=== PATIENT | male | born 1960 | race Hispanic/Latino ===

== ENCOUNTER 2020-08-19 12:04 | Inpatient (IN) | payer MEDICAID, OTHER ==
[~2020-08-19] VITALS: Ht 180.3 cm; Wt 88.6 kg
[2020-08-19] MEDS ORDERED: ZOSYN 3.375GM+NS 50ML 50 ML IV ONE (13:10)
[2020-08-19 13:19] LABS: INR 0.97 (0.85-1.15); PROTHROMBIN TIME 10.1 SEC (9.6-11.6)
[2020-08-19 13:20] LABS: PARTIAL THROMBOPLASTIN TIME 24.1 SEC (26.3-35.5)
[2020-08-19 13:23] LABS: ALBUMIN 3.4 g/dL (3.5-5.0); BILIRUBIN,TOTAL 0.3 mg/dL (0.2-1.0); CREATININE 1.7 mg/dL (0.5-1.5); POTASSIUM 4.8 mmol/L (3.5-5.1); TOTAL PROTEIN, SERUM 7.4 g/dL (6.0-8.3)
[2020-08-19] MEDS ORDERED: INSULIN HUMULIN R 100 UNIT/ML 3ML ONE ×2 (13:47→18:19)
[2020-08-19 13:51] LABS: BASOPHILS % (AUTO) 0.5 % (0.0-5.0); EOSINOPHILS % (AUTO) 1.8 % (0.0-8.0); LYMPHOCYTES % (AUTO) 15.1 % (21.0-51.0); MEAN CORPUSCULAR HEMOGLOBIN 27.9 pg (27.0-33.0); MEAN CORPUSCULAR HGB CONC 32.9 g/dL (32.0-36.0); MEAN CORPUSCULAR VOLUME 84.8 fL (79-99); MONOCYTES % (AUTO) 6.5 % (3.0-13.0); NEUTROPHILS % (AUTO) 75.8 % (40.0-77.0); PLATELET COUNT (AUTO) 296 K/uL (130-400); RED BLOOD CELL COUNT(AUTO) 4.48 MIL/uL (4.50-6.20); RED CELL DISTRIBUTION WIDTH 12.9 % (11.0-15.5); WHITE BLOOD COUNT (AUTO) 9.5 K/uL (4.8-10.8)
[2020-08-19] MEDS ORDERED: VANCOMYCIN PROTOCOL PER PHARMACY IV SCH (14:00)
[2020-08-19] MEDS: CEFAZOLIN SODIUM 1 GM VIAL IVP SCH ×2 (14:00→22:00)
[2020-08-19] MEDS ORDERED: LACTULOSE 20 GM/30 ML UDCUP PO PRN (14:00)
[2020-08-19] MEDS ORDERED: ONDANSETRON 4MG INJ IV PRN (14:00)
[2020-08-19] MEDS: 0.9%NACL 1000ML 1,000 ML IV SCH ×3 (14:00→23:41)
[2020-08-19] MEDS ORDERED: GABAPENTIN 300 MG CAPSULE ONE (14:14)
[2020-08-19] MEDS ORDERED: ACETAMINOPHEN 500 MG TABLET ONE (14:14)
[2020-08-19] MEDS ORDERED: 0.9%NACL 1000ML 1,000 ML IV ONE ×2 (14:14→15:34)
[2020-08-19 14:38] LABS: ABG BASE EXCESS -2.4 mmol/L (-2.0-3.0); ABG OXYGEN SATURATION 98.2 % (95.0-99.0); ABG PCO2 33 mmHg (35-48)
[2020-08-19 14:46] LABS: HEMOGLOBIN A1C 13.4 % (4.0-6.0)
[2020-08-19] MEDS ORDERED: COMPOUND IV REFRIGERATED 1 EACH IVSOLN MISC PRN (15:00)
[2020-08-19] MEDS ORDERED: CEFAZOLIN SODIUM 1 GM VIAL ONE (15:18)
[2020-08-19] MEDS ORDERED: INSULIN HUMULIN R 100 UNIT/ML 3ML SQ SCH (16:30)
[2020-08-19] MEDS: VANCOMYCIN 1G 1.25 GM in 0.9% NACL 250ML 250 ML IV SCH (17:00)
[2020-08-19] MEDS: INSULIN HUMULIN R 100 UNIT/ML 3ML SQ SCH ×2 (18:00→23:44)
[2020-08-19] MEDS ORDERED: DiphenhydrAMINE HCL 50 MG/ML VIAL IVP PRN (18:30)
[2020-08-19 19:01] LABS: HEMATOCRIT 33.9 % (42-54); MEAN CORPUSCULAR HEMOGLOBIN 28.8 pg (27.0-33.0); MEAN CORPUSCULAR HGB CONC 33.6 g/dL (32.0-36.0); MEAN CORPUSCULAR VOLUME 85.6 fL (79-99); RED BLOOD CELL COUNT(AUTO) 3.96 MIL/uL (4.50-6.20); WHITE BLOOD COUNT (AUTO) 7.5 K/uL (4.8-10.8)
[2020-08-19 19:11] LABS: CREATININE 1.3 mg/dL (0.5-1.5); POTASSIUM 4.1 mmol/L (3.5-5.1)
[2020-08-19 19:31] LABS: INR 0.93 (0.85-1.15); PROTHROMBIN TIME 10.2 SEC (9.6-11.6)
[2020-08-19 19:32] LABS: PARTIAL THROMBOPLASTIN TIME 26.9 SEC (26.3-35.5)
[2020-08-19 20:59] VITALS: BP 139/91
[2020-08-19] MEDS: FAMOTIDINE 20MG VIAL IV SCH (21:00)
[2020-08-19 23:48] VITALS: BP 152/68
[2020-08-20] VITALS (12 sets, daily range): BP systolic 117–175; BP diastolic 68–83
[2020-08-20] MEDS: 0.9%NACL 1000ML 1,000 ML IV SCH ×4 (04:30→21:50)
[2020-08-20 05:15] LABS: BASOPHILS % (AUTO) 0.9 % (0.0-5.0); EOSINOPHILS % (AUTO) 3.8 % (0.0-8.0); HEMATOCRIT 33.9 % (42-54); LYMPHOCYTES % (AUTO) 30.1 % (21.0-51.0); MEAN CORPUSCULAR HEMOGLOBIN 27.4 pg (27.0-33.0); MEAN CORPUSCULAR HGB CONC 31.9 g/dL (32.0-36.0); MONOCYTES % (AUTO) 11.1 % (3.0-13.0); NEUTROPHILS % (AUTO) 53.8 % (40.0-77.0); PLATELET COUNT (AUTO) 263 K/uL (130-400); RED BLOOD CELL COUNT(AUTO) 3.94 MIL/uL (4.50-6.20); WHITE BLOOD COUNT (AUTO) 6.8 K/uL (4.8-10.8)
[2020-08-20 05:29] LABS: ALBUMIN 2.6 g/dL (3.5-5.0); BILIRUBIN,TOTAL 0.3 mg/dL (0.2-1.0); CREATININE 1.2 mg/dL (0.5-1.5); POTASSIUM 3.8 mmol/L (3.5-5.1); TOTAL PROTEIN, SERUM 5.8 g/dL (6.0-8.3)
[2020-08-20] MEDS: INSULIN HUMULIN R 100 UNIT/ML 3ML SQ SCH ×7 (06:00→22:08)
[2020-08-20] MEDS: CEFAZOLIN SODIUM 1 GM VIAL IVP SCH (06:04)
[2020-08-20] MEDS ORDERED: ENOXAPARIN SODIUM 40 MG/0.4 ML SYRINGE SQ SCH (09:00)
[2020-08-20] MEDS ORDERED: HEPARIN 10,000 UNIT/10ML (1,000 UNIT/ML) VIAL ONE (11:38)
[2020-08-20] MEDS ORDERED: IODIXANOL 320 MG/ML 100 ML VIAL ONE (11:38)
[2020-08-20] MEDS ORDERED: NITROGLYCERIN 2 MG VIAL IV ONE (11:38)
[2020-08-20] MEDS ORDERED: HEPARIN 1,000 UNIT VIAL ONE (11:38)
[2020-08-20] MEDS ORDERED: MIDAZOLAM HCL 1 MG/ML 2ML VIAL ONE (11:38)
[2020-08-20] MEDS ORDERED: FENTANYL CITRATE PF 50 MCG/1 ML 2ML VIAL ONE (11:38)
[2020-08-20] MEDS ORDERED: LIDOCAINE HCL 400MG/20ML VIAL ONE (11:39)
[2020-08-20] MEDS: NICOTINE 7 MG/ 24 HR PATCH TD SCH (11:53)
[2020-08-20] MEDS: ASPIRIN 81MG CHEW TAB PO SCH (11:54)
[2020-08-20] MEDS: FAMOTIDINE 20MG VIAL IV SCH ×2 (11:54→21:49)
[2020-08-20] MEDS ORDERED: METOPROLOL TARTRATE 1 MG/ML 5ML VIAL IV ONE (13:33)
[2020-08-20] MEDS ORDERED: ASPIRIN 325MG EC TAB PO ONE (13:40)
[2020-08-20] MEDS ORDERED: TICAGRELOR 90 MG TABLET ONE (13:40)
[2020-08-20] MEDS ORDERED: 0.9%NACL 1000ML 1,000 ML IV SCH (14:00)
[2020-08-20] MEDS: CEFEPIME HCL 1 GM VIAL IVP SCH ×2 (14:00→21:49)
[2020-08-20] MEDS: VANCOMYCIN 1G 1.25 GM in 0.9% NACL 250ML 250 ML IV SCH ×2 (14:36→21:49)
[2020-08-20] MEDS ORDERED: DIPH,PERTUSS(ACELL),TET VAC/PF 0.5 ML VIAL IM ONE (17:00)
[2020-08-20] MEDS ORDERED: INSULIN GLARGINE 100 UNITS/ML 10 ML VIAL SQ SCH (21:00)
[2020-08-20] MEDS: ATORVASTATIN 40 MG TABLET PO SCH (21:49)
[2020-08-20] MEDS: ACETAMINOPHEN 325 MG TAB PO PRN (22:02)
[2020-08-20] MEDS ORDERED: TICAGRELOR 90 MG TABLET PO SCH (23:00)
[2020-08-21] VITALS (7 sets, daily range): BP systolic 117–178; BP diastolic 66–84
[2020-08-21] MEDS: 0.9%NACL 1000ML 1,000 ML IV SCH ×3 (00:11→05:35)
[2020-08-21] MEDS: ACETAMINOPHEN 325 MG TAB PO PRN (03:57)
[2020-08-21 05:07] LABS: BASOPHILS % (AUTO) 0.4 % (0.0-5.0); EOSINOPHILS % (AUTO) 2.7 % (0.0-8.0); HEMATOCRIT 37.2 % (42-54); LYMPHOCYTES % (AUTO) 18.2 % (21.0-51.0); MEAN CORPUSCULAR HEMOGLOBIN 28.7 pg (27.0-33.0); MEAN CORPUSCULAR HGB CONC 33.3 g/dL (32.0-36.0); MEAN CORPUSCULAR VOLUME 86.1 fL (79-99); MONOCYTES % (AUTO) 4.8 % (3.0-13.0); NEUTROPHILS % (AUTO) 73.5 % (40.0-77.0); PLATELET COUNT (AUTO) 288 K/uL (130-400); RED BLOOD CELL COUNT(AUTO) 4.32 MIL/uL (4.50-6.20); RED CELL DISTRIBUTION WIDTH 12.9 % (11.0-15.5)
[2020-08-21 05:29] LABS: ALBUMIN 3.1 g/dL (3.5-5.0); BILIRUBIN,TOTAL 0.5 mg/dL (0.2-1.0); CREATININE 1.6 mg/dL (0.5-1.5); POTASSIUM 4.1 mmol/L (3.5-5.1); TOTAL PROTEIN, SERUM 6.8 g/dL (6.0-8.3)
[2020-08-21] MEDS: CEFEPIME HCL 1 GM VIAL IVP SCH ×3 (06:01→21:31)
[2020-08-21] MEDS: INSULIN HUMULIN R 100 UNIT/ML 3ML SQ SCH ×5 (06:02→22:06)
[2020-08-21] MEDS ORDERED: METO-408 PO (07:24)
[2020-08-21] MEDS ORDERED: SITA1TAB6 PO (07:24)
[2020-08-21] MEDS ORDERED: CITA-106 PO (07:24)
[2020-08-21] MEDS ORDERED: BUSP15 PO (07:24)
[2020-08-21] MEDS ORDERED: OMEP20CA12 PO (07:24)
[2020-08-21] MEDS ORDERED: GLIP10TA9 PO (07:24)
[2020-08-21] MEDS ORDERED: AMLO-258 PO (07:24)
[2020-08-21] MEDS ORDERED: ATOR40TA71 PO (07:24)
[2020-08-21] MEDS ORDERED: INSULIN HUMULIN R 100 UNIT/ML 3ML SQ SCH (07:30)
[2020-08-21] MEDS ORDERED: PREG50 PO (08:37)
[2020-08-21] MEDS: FAMOTIDINE 20MG VIAL IV SCH ×2 (08:52→21:31)
[2020-08-21] MEDS: CITALOPRAM 20 MG TABLET PO SCH (08:52)
[2020-08-21] MEDS: ASPIRIN 81MG CHEW TAB PO SCH (08:52)
[2020-08-21] MEDS: CLOPIDOGREL 75MG TAB PO SCH (08:53)
[2020-08-21] MEDS: NICOTINE 7 MG/ 24 HR PATCH TD SCH (08:54)
[2020-08-21] MEDS: DIPH,PERTUSS(ACELL),TET VAC/PF 0.5 ML VIAL IM SCH (09:02)
[2020-08-21] MEDS ORDERED: AMLODIPINE 5 MG TAB PO SCH (09:44)
[2020-08-21] MEDS: BUSPIRONE HCL 5 MG TABLET PO SCH ×2 (11:02→21:30)
[2020-08-21] MEDS: VANCOMYCIN 1G 1.25 GM in 0.9% NACL 250ML 250 ML IV SCH ×2 (11:03→21:29)
[2020-08-21] MEDS: METOPROLOL SUCCINATE 50 MG TAB.SR.24H PO SCH ×2 (11:03→21:29)
[2020-08-21] MEDS ORDERED: ATORVASTATIN 40 MG TABLET PO SCH (21:00)
[2020-08-21] MEDS: ATORVASTATIN 40 MG TABLET PO SCH (21:29)
[2020-08-21] MEDS: INSULIN GLARGINE 100 UNITS/ML 10 ML VIAL SQ SCH (21:33)
[2020-08-22] VITALS (18 sets, daily range): BP systolic 108–172; BP diastolic 63–86
[2020-08-22 04:59] LABS: BASOPHILS % (AUTO) 0.4 % (0.0-5.0); EOSINOPHILS % (AUTO) 4.5 % (0.0-8.0); HEMATOCRIT 35.2 % (42-54); LYMPHOCYTES % (AUTO) 22.7 % (21.0-51.0); MEAN CORPUSCULAR HEMOGLOBIN 27.5 pg (27.0-33.0); MEAN CORPUSCULAR HGB CONC 31.8 g/dL (32.0-36.0); MEAN CORPUSCULAR VOLUME 86.3 fL (79-99); MONOCYTES % (AUTO) 8.4 % (3.0-13.0); NEUTROPHILS % (AUTO) 63.6 % (40.0-77.0); PLATELET COUNT (AUTO) 275 K/uL (130-400); RED BLOOD CELL COUNT(AUTO) 4.08 MIL/uL (4.50-6.20); WHITE BLOOD COUNT (AUTO) 7.3 K/uL (4.8-10.8)
[2020-08-22] MEDS: CEFEPIME HCL 1 GM VIAL IVP SCH ×3 (05:14→22:06)
[2020-08-22] MEDS: INSULIN HUMULIN R 100 UNIT/ML 3ML SQ SCH ×7 (05:16→21:43)
[2020-08-22 05:31] LABS: ALBUMIN 2.6 g/dL (3.5-5.0); BILIRUBIN,TOTAL 0.4 mg/dL (0.2-1.0); CREATININE 1.3 mg/dL (0.5-1.5); POTASSIUM 4.2 mmol/L (3.5-5.1)
[2020-08-22] MEDS: 0.9%NACL 1000ML 1,000 ML IV SCH ×2 (05:47→16:21)
[2020-08-22] MEDS ORDERED: BUPIVACAINE/PF 0.5% 30ML VIAL ONE (06:03)
[2020-08-22] MEDS ORDERED: LIDOCAINE HCL 1% 20 ML VIAL ONE (06:03)
[2020-08-22] MEDS ORDERED: LIDOCAINE PF 100MG/5ML (2%) SYRINGE 5ML ONE (06:30)
[2020-08-22] MEDS ORDERED: DEXAMETHASONE SOD PHOSPHATE 10MG/ML 1ML VIAL ONE (06:31)
[2020-08-22] MEDS ORDERED: ONDANSETRON 4MG INJ ONE (06:31)
[2020-08-22] MEDS ORDERED: PROPOFOL 10 MG/ML 20ML VIAL IV ONE (06:31)
[2020-08-22] MEDS ORDERED: MIDAZOLAM HCL 1 MG/ML 2ML VIAL ONE (06:31)
[2020-08-22] MEDS ORDERED: MEPERIDINE-PF 25 MG/ML SYG ONE (06:32)
[2020-08-22] MEDS ORDERED: FENTANYL CITRATE PF 50 MCG/1 ML 2ML VIAL ONE (06:32)
[2020-08-22] MEDS: DIPH,PERTUSS(ACELL),TET VAC/PF 0.5 ML VIAL IM SCH (08:30)
[2020-08-22] MEDS: BUSPIRONE HCL 5 MG TABLET PO SCH ×2 (09:31→20:55)
[2020-08-22] MEDS: METOPROLOL SUCCINATE 50 MG TAB.SR.24H PO SCH ×2 (09:31→20:56)
[2020-08-22] MEDS: CITALOPRAM 20 MG TABLET PO SCH (09:31)
[2020-08-22] MEDS: FAMOTIDINE 20MG VIAL IV SCH ×2 (09:31→20:55)
[2020-08-22] MEDS: ASPIRIN 81MG CHEW TAB PO SCH (09:31)
[2020-08-22] MEDS: VANCOMYCIN 1G 1.25 GM in 0.9% NACL 250ML 250 ML IV SCH ×2 (09:31→20:57)
[2020-08-22] MEDS: CLOPIDOGREL 75MG TAB PO SCH (09:31)
[2020-08-22] MEDS: NICOTINE 7 MG/ 24 HR PATCH TD SCH (09:32)
[2020-08-22] MEDS: AMLODIPINE 5 MG TAB PO SCH ×2 (16:21→20:56)
[2020-08-22] MEDS: ACETAMINOPHEN 325 MG TAB PO PRN (18:28)
[2020-08-22] MEDS: ATORVASTATIN 40 MG TABLET PO SCH (20:56)
[2020-08-22] MEDS: INSULIN GLARGINE 100 UNITS/ML 10 ML VIAL SQ SCH (21:52)
[2020-08-23] MEDS ORDERED: MORPHINE 4 MG SYG IV PRN
[2020-08-23] MEDS ORDERED: MORPHINE 2 MG SYG ONE (00:01)
[2020-08-23] MEDS: 0.9%NACL 1000ML 1,000 ML IV SCH ×3 (02:50→22:02)
[2020-08-23 04:31] VITALS: BP 116/61
[2020-08-23] MEDS: CEFEPIME HCL 1 GM VIAL IVP SCH ×3 (05:49→22:02)
[2020-08-23] MEDS: INSULIN HUMULIN R 100 UNIT/ML 3ML SQ SCH ×8 (06:00→22:01)
[2020-08-23 06:11] LABS: BASOPHILS % (AUTO) 0.4 % (0.0-5.0); EOSINOPHILS % (AUTO) 3.9 % (0.0-8.0); HEMATOCRIT 34.6 % (42-54); LYMPHOCYTES % (AUTO) 21.5 % (21.0-51.0); MEAN CORPUSCULAR HEMOGLOBIN 28.7 pg (27.0-33.0); MEAN CORPUSCULAR HGB CONC 32.9 g/dL (32.0-36.0); MEAN CORPUSCULAR VOLUME 87.2 fL (79-99); NEUTROPHILS % (AUTO) 64.6 % (40.0-77.0); PLATELET COUNT (AUTO) 287 K/uL (130-400); RED BLOOD CELL COUNT(AUTO) 3.97 MIL/uL (4.50-6.20); RED CELL DISTRIBUTION WIDTH 13.2 % (11.0-15.5); WHITE BLOOD COUNT (AUTO) 7.2 K/uL (4.8-10.8)
[2020-08-23 06:15] LABS: CREATININE 1.3 mg/dL (0.5-1.5); POTASSIUM 4.3 mmol/L (3.5-5.1)
[2020-08-23] MEDS: DIPH,PERTUSS(ACELL),TET VAC/PF 0.5 ML VIAL IM SCH (06:49)
[2020-08-23 07:31] VITALS: BP 143/21
[2020-08-23] MEDS: VANCOMYCIN 1G 1.25 GM in 0.9% NACL 250ML 250 ML IV SCH (09:00)
[2020-08-23] MEDS: CITALOPRAM 20 MG TABLET PO SCH (09:15)
[2020-08-23] MEDS: ASPIRIN 81MG CHEW TAB PO SCH (09:15)
[2020-08-23] MEDS: BUSPIRONE HCL 5 MG TABLET PO SCH ×2 (09:17→21:58)
[2020-08-23] MEDS: AMLODIPINE 5 MG TAB PO SCH ×2 (09:18→21:58)
[2020-08-23] MEDS: CLOPIDOGREL 75MG TAB PO SCH (09:31)
[2020-08-23] MEDS: FAMOTIDINE 20MG VIAL IV SCH ×2 (09:31→21:58)
[2020-08-23] MEDS: METOPROLOL SUCCINATE 50 MG TAB.SR.24H PO SCH ×2 (09:32→21:58)
[2020-08-23] MEDS: NICOTINE 7 MG/ 24 HR PATCH TD SCH (09:36)
[2020-08-23 11:56] VITALS: BP 161/73
[2020-08-23] MEDS: MORPHINE 2 MG SYG IVP PRN ×2 (13:05→21:00)
[2020-08-23 18:18] VITALS: BP 140/70
[2020-08-23 19:00] VITALS: BP 145/68
[2020-08-23] MEDS: ATORVASTATIN 40 MG TABLET PO SCH (21:58)
[2020-08-23] MEDS: INSULIN GLARGINE 100 UNITS/ML 10 ML VIAL SQ SCH (22:01)
[2020-08-24 00:30] VITALS: BP 141/59
[2020-08-24 04:00] VITALS: BP 144/75
[2020-08-24 05:03] LABS: BASOPHILS % (AUTO) 0.4 % (0.0-5.0); EOSINOPHILS % (AUTO) 4.3 % (0.0-8.0); HEMATOCRIT 30.9 % (42-54); LYMPHOCYTES % (AUTO) 25.2 % (21.0-51.0); MEAN CORPUSCULAR HEMOGLOBIN 28.1 pg (27.0-33.0); MEAN CORPUSCULAR HGB CONC 32.7 g/dL (32.0-36.0); MEAN CORPUSCULAR VOLUME 86.1 fL (79-99); MONOCYTES % (AUTO) 13.5 % (3.0-13.0); NEUTROPHILS % (AUTO) 56.1 % (40.0-77.0); PLATELET COUNT (AUTO) 278 K/uL (130-400); RED BLOOD CELL COUNT(AUTO) 3.59 MIL/uL (4.50-6.20); WHITE BLOOD COUNT (AUTO) 7.9 K/uL (4.8-10.8)
[2020-08-24 05:19] LABS: CREATININE 1.3 mg/dL (0.5-1.5); POTASSIUM 4.1 mmol/L (3.5-5.1)
[2020-08-24] MEDS: CEFEPIME HCL 1 GM VIAL IVP SCH ×2 (06:02→13:27)
[2020-08-24] MEDS: INSULIN HUMULIN R 100 UNIT/ML 3ML SQ SCH ×6 (06:04→16:36)
[2020-08-24 08:04] VITALS: BP 124/79
[2020-08-24] MEDS: 0.9%NACL 1000ML 1,000 ML IV SCH ×2 (08:30→17:16)
[2020-08-24 08:39] LABS: APPEARANCE,URINE Clear (CLEAR); BILIRUBIN,URINE Negative (NEGATIVE); COLOR,URINE Yellow (YELLOW); GLUCOSE, URINE (UA) 250 mg/dL (NEGATIVE); KETONES,URINE Negative (NEGATIVE); LEUKOCYTE ESTERASE ,URINE Negative (NEGATIVE); NITRATE,URINE Negative (NEGATIVE); OCCULT BLOOD,URINE Negative (NEGATIVE); PROTEIN,URINE POS 2+ mg/dL (NEGATIVE); UROBILINOGEN,URINE 0.2 mg/dL (0.2-1.0)
[2020-08-24 08:49] LABS: BACTERIA,URINE Few /HPF (None Seen); RBC,URINE None Seen /HPF (0-1); SQUAMOUS EPITHELIAL CELL,UR None Seen /HPF (0-2)
[2020-08-24] MEDS: BUSPIRONE HCL 5 MG TABLET PO SCH (09:23)
[2020-08-24] MEDS: AMLODIPINE 5 MG TAB PO SCH (09:26)
[2020-08-24] MEDS: METOPROLOL SUCCINATE 50 MG TAB.SR.24H PO SCH (09:40)
[2020-08-24] MEDS: ASPIRIN 81MG CHEW TAB PO SCH (09:40)
[2020-08-24] MEDS: CITALOPRAM 20 MG TABLET PO SCH (09:41)
[2020-08-24] MEDS: CLOPIDOGREL 75MG TAB PO SCH (09:41)
[2020-08-24] MEDS: FAMOTIDINE 20MG VIAL IV SCH (09:42)
[2020-08-24] MEDS: NICOTINE 7 MG/ 24 HR PATCH TD SCH (09:55)
[2020-08-24] MEDS: MORPHINE 2 MG SYG IVP PRN ×2 (10:06→15:48)
[2020-08-24] MEDS: VANCOMYCIN 1G 1.25 GM in 0.9% NACL 250ML 250 ML IV SCH (10:08)
[2020-08-24 12:14] VITALS: BP 147/68
[2020-08-24] MEDS ORDERED: CEFU500T67 PO (12:45)
[2020-08-24 17:51] VITALS: BP 157/74
[2020-08-24] MEDS ORDERED: VANCOMYCIN 1G/250ML KIT 250 ML IV SCH (21:00)
== END 2020-08-24 18:52 | disposition home or self-care (01) | DRG 271 ==
LOC: EDH 12:04 → EDHIP 13:56 → 4BH 20:41
PROVIDERS: ADMIT Internal Medicine; ATTEND Internal Medicine
PROC: 047L3Z1 Dilation of Left Femoral Artery using Drug-Coated Balloon, Percutaneous Approach (ICD-10-PCS; 2020-08-20)
PROC: B41D1ZZ Fluoroscopy of Aorta and Bilateral Lower Extremity Arteries using Low Osmolar Contrast (ICD-10-PCS; 2020-08-20)
PROC: B41G1ZZ Fluoroscopy of Left Lower Extremity Arteries using Low Osmolar Contrast (ICD-10-PCS; 2020-08-20)
PROC: 04CL3ZZ Extirpation of Matter from Left Femoral Artery, Percutaneous Approach (ICD-10-PCS; 2020-08-20)
PROC: 0LQW0ZZ Repair Left Foot Tendon, Open Approach (ICD-10-PCS; 2020-08-22)
PROC: 0Y6Q0Z0 Detachment at Left 1st Toe, Complete, Open Approach (ICD-10-PCS; principal; 2020-08-22 07:08)
PROC: 3E0234Z Introduction of Serum, Toxoid and Vaccine into Muscle, Percutaneous Approach (ICD-10-PCS; 2020-08-23)
DX: E11.52 Type 2 diabetes mellitus with diabetic peripheral angiopathy with gangrene (principal); M86.9 Osteomyelitis, unspecified; E11.69 Type 2 diabetes mellitus with other specified complication; E11.621 Type 2 diabetes mellitus with foot ulcer; Z20.822 Contact with and (suspected) exposure to COVID-19; L97.529 Non-pressure chronic ulcer of other part of left foot with unspecified severity; E78.5 Hyperlipidemia, unspecified; I10 Essential (primary) hypertension; F17.210 Nicotine dependence, cigarettes, uncomplicated; L03.032 Cellulitis of left toe; Z79.84 Long term (current) use of oral hypoglycemic drugs; Z89.421 Acquired absence of other right toe(s); E66.9 Obesity, unspecified; Z83.3 Family history of diabetes mellitus; Z68.27 Body mass index [BMI] 27.0-27.9, adult; Z23 Encounter for immunization; Z91.14 Patient's other noncompliance with medication regimen
CPT/HCPCS: 36415; 36600; 37225; 37228; 71045; 73560; 73630; 75710; 76882; 80048; 80053; 80202; 81001; 82550; 82803; 82948; 83036; 83605; 84484; 85025; 85027; 85347; 85610; 85730; 86140; 86850; 86900; 86901; 87040; 87070; 87076; 87077; 87186; 87205; 87426; 88304; 88305; 88311; 90715; 93005; 93306; 93356; 93926; 93970; 97039; 99156; 99157; 99291; C1760; C1769; C1893; C1894; G0378; J0690; J0692; J1100; J1200; J1644; J1815; J2001; J2175; J2250; J2405; J2543; J2704; J3010; J3370; J3490; J7030; J7050; Q9967; U0003

== ENCOUNTER 2022-05-15 12:19 | Emergency (ER) | payer MEDICARE, OTHER ==
[~2022-05-15] VITALS: Ht 182.9 cm; Wt 79.4 kg
[~2022-05-15 12:19] MED LIST: AMLO-258 PO; ATOR40TA71 PO; BUSP15 PO; CEFU500T67 PO; CITA-106 PO; GLIP10TA9 PO; METO-408 PO; OMEP20CA12 PO; PREG50 PO; SITA1TAB6 PO
[2022-05-15 13:54] LABS: BASOPHILS % (AUTO) 0.4 % (0.0-5.0); EOSINOPHILS % (AUTO) 3.3 % (0.0-8.0); HEMATOCRIT 35.8 % (42-54); LYMPHOCYTES % (AUTO) 12.8 % (21.0-51.0); MEAN CORPUSCULAR HEMOGLOBIN 27.4 pg (27.0-33.0); MEAN CORPUSCULAR VOLUME 83.1 fL (79-99); MONOCYTES % (AUTO) 8.8 % (3.0-13.0); NEUTROPHILS % (AUTO) 74.1 % (40.0-77.0); PLATELET COUNT (AUTO) 289 K/uL (130-400); RED BLOOD CELL COUNT(AUTO) 4.31 MIL/uL (4.50-6.20); RED CELL DISTRIBUTION WIDTH 13.2 % (11.0-15.5); WHITE BLOOD COUNT (AUTO) 11.2 K/uL (4.8-10.8)
[2022-05-15] MEDS ORDERED: TRAMADOL HCL 50 MG TABLET PO ONE (14:00)
[2022-05-15 14:09] LABS: INR 0.93 (0.85-1.15); PROTHROMBIN TIME 9.9 SEC (9.6-11.6)
[2022-05-15 14:10] LABS: PARTIAL THROMBOPLASTIN TIME 27.9 SEC (26.3-35.5)
[2022-05-15 14:15] LABS: CREATININE 1.6 mg/dL (0.5-1.5); POTASSIUM 4.9 mmol/L (3.5-5.1)
[2022-05-15 14:20] LABS: ALBUMIN 3.6 g/dL (3.5-5.0); TOTAL PROTEIN, SERUM 7.4 g/dL (6.0-8.3)
[2022-05-15] MEDS ORDERED: ACET-66 PO (15:28)
[2022-05-15] MEDS ORDERED: SULF1TAB42 PO (15:42)
[2022-05-15] MEDS ORDERED: CEPH500B PO (15:42)
[2022-05-15 15:56] VITALS: BP 138/65
== END 2022-05-15 16:02 | disposition home or self-care (01) ==
LOC: EDH 12:19
DX: S89.91XA Unspecified injury of right lower leg, initial encounter (principal); S99.911A Unspecified injury of right ankle, initial encounter; L03.115 Cellulitis of right lower limb; M19.90 Unspecified osteoarthritis, unspecified site; E11.9 Type 2 diabetes mellitus without complications; E78.00 Pure hypercholesterolemia, unspecified; I10 Essential (primary) hypertension; F32.A Depression, unspecified; Z79.84 Long term (current) use of oral hypoglycemic drugs; Z79.899 Other long term (current) drug therapy; W18.39XA Other fall on same level, initial encounter; Y93.89 Activity, other specified; Y92.89 Other specified places as the place of occurrence of the external cause; Y99.8 Other external cause status
CPT/HCPCS: 36415; 73562; 73610; 80053; 82550; 83605; 84484; 85025; 85610; 85730; 87040; 93971

== ENCOUNTER 2022-05-31 14:05 | Emergency (ER) | payer MEDICARE ==
[~2022-05-31] VITALS: Ht 182.9 cm; Wt 81.6 kg
[~2022-05-31 14:05] MED LIST changes: +ASPI-1005 PO; -BUSP15 PO; -CEFU500T67 PO; +LEVO750T39 PO; +LISI20TA24 PO
[2022-05-31 15:17] VITALS: BP 147/76
[2022-05-31 16:43] LABS: BASOPHILS % (AUTO) 0.7 % (0.0-5.0); EOSINOPHILS % (AUTO) 5.6 % (0.0-8.0); HEMATOCRIT 34.5 % (42-54); LYMPHOCYTES % (AUTO) 28.8 % (21.0-51.0); MEAN CORPUSCULAR HEMOGLOBIN 27.4 pg (27.0-33.0); MEAN CORPUSCULAR HGB CONC 33.6 g/dL (32.0-36.0); MEAN CORPUSCULAR VOLUME 81.4 fL (79-99); MONOCYTES % (AUTO) 7.5 % (3.0-13.0); PLATELET COUNT (AUTO) 346 K/uL (130-400); RED BLOOD CELL COUNT(AUTO) 4.24 MIL/uL (4.50-6.20); RED CELL DISTRIBUTION WIDTH 14.1 % (11.0-15.5); WHITE BLOOD COUNT (AUTO) 9.1 K/uL (4.8-10.8)
[2022-05-31 16:56] LABS: ALBUMIN 4.2 g/dL (3.5-5.0); POTASSIUM 4.8 mmol/L (3.5-5.1); TOTAL PROTEIN, SERUM 7.6 g/dL (6.0-8.3)
[2022-05-31] MEDS ORDERED: 0.9%NACL 1000ML 1,000 ML IV ONE (17:00)
[2022-05-31] MEDS ORDERED: KETOROLAC 30MG VIAL (30MG/ML) IM STA (17:02)
== END 2022-05-31 18:38 | disposition home or self-care (01) ==
LOC: EDH 14:05
DX: M79.661 Pain in right lower leg (principal); E11.9 Type 2 diabetes mellitus without complications; E78.00 Pure hypercholesterolemia, unspecified; K21.9 Gastro-esophageal reflux disease without esophagitis; I10 Essential (primary) hypertension; E86.0 Dehydration; Z48.00 Encounter for change or removal of nonsurgical wound dressing; Z79.1 Long term (current) use of non-steroidal anti-inflammatories (NSAID); Z79.82 Long term (current) use of aspirin; Z79.84 Long term (current) use of oral hypoglycemic drugs; Z79.899 Other long term (current) drug therapy
CPT/HCPCS: 99283; 96360; 96361; 80053; 85025; 36415; 96372; J7030; J1885

== ENCOUNTER 2022-09-24 16:16 | Emergency (ER) | payer MEDICARE ==
[~2022-09-24] VITALS: Ht 182.9 cm; Wt 81.6 kg
[~2022-09-24 16:16] MED LIST changes: +BUSP15 PO; +CITA-107 PO; -LEVO750T39 PO; -LISI20TA24 PO; -PREG50 PO; +PREG75CA75 PO; +TRAM50TA4 PO
[2022-09-24 17:27] LABS: BASOPHILS % (AUTO) 0.6 % (0.0-5.0); EOSINOPHILS % (AUTO) 3.2 % (0.0-8.0); HEMATOCRIT 31.5 % (42-54); LYMPHOCYTES % (AUTO) 25.7 % (21.0-51.0); MEAN CORPUSCULAR HEMOGLOBIN 27.1 pg (27.0-33.0); MEAN CORPUSCULAR HGB CONC 33.3 g/dL (32.0-36.0); MEAN CORPUSCULAR VOLUME 81.4 fL (79-99); MONOCYTES % (AUTO) 9.5 % (3.0-13.0); NEUTROPHILS % (AUTO) 60.8 % (40.0-77.0); PLATELET COUNT (AUTO) 254 K/uL (130-400); RED BLOOD CELL COUNT(AUTO) 3.87 MIL/uL (4.50-6.20); RED CELL DISTRIBUTION WIDTH 13.1 % (11.0-15.5); WHITE BLOOD COUNT (AUTO) 9.1 K/uL (4.8-10.8)
[2022-09-24 17:46] LABS: CREATININE 1.5 mg/dL (0.5-1.5); POTASSIUM 4.7 mmol/L (3.5-5.1)
[2022-09-24 17:51] LABS: ALBUMIN 3.8 g/dL (3.5-5.0); TOTAL PROTEIN, SERUM 7.4 g/dL (6.0-8.3)
[2022-09-24] MEDS ORDERED: MUPI22O TP (19:16)
[2022-09-24 19:54] VITALS: BP 152/74
== END 2022-09-24 20:03 | disposition home or self-care (01) ==
LOC: EDH 16:16
DX: E11.621 Type 2 diabetes mellitus with foot ulcer (principal); E78.00 Pure hypercholesterolemia, unspecified; I10 Essential (primary) hypertension; Z79.82 Long term (current) use of aspirin; Z79.84 Long term (current) use of oral hypoglycemic drugs; Z79.899 Other long term (current) drug therapy
CPT/HCPCS: 36415; 73620; 80053; 83605; 85025; 87040

== ENCOUNTER → 2023-09-01 | Outpatient (CLI) | payer OTHER ==
[~2023-09-01] MED LIST changes: +AMOX500T2 PO; +ASCO500C6 PO; -ASPI-1005 PO; +ATOR40TA69 PO; -ATOR40TA71 PO; +BUME1TAB6 PO; -BUSP15 PO; +BUSP7.5T7 PO; -CITA-106 PO; +ERGO2000 PO; +FERR324T4 PO; +FOLI0.8T2 PO; -GLIP10TA9 PO; +LACT1CAP70 PO; +MULT-1367 PO; -OMEP20CA12 PO; -PREG75CA75 PO; +PREG75CA76 PO; +QUESL4 PO; -SITA1TAB6 PO; -TRAM50TA4 PO; +ZINC50TA64 PO
== END | disposition home or self-care (01) ==
LOC: WHH 08:58
PROVIDERS: ATTEND Nurse Practitioner Family
DX: T81.89XA Other complications of procedures, not elsewhere classified, initial encounter (principal); E11.621 Type 2 diabetes mellitus with foot ulcer; L97.522 Non-pressure chronic ulcer of other part of left foot with fat layer exposed; E11.622 Type 2 diabetes mellitus with other skin ulcer; L98.412 Non-pressure chronic ulcer of buttock with fat layer exposed; I13.0 Hypertensive heart and chronic kidney disease with heart failure and stage 1 through stage 4 chronic kidney disease, or unspecified chronic kidney disease; E11.22 Type 2 diabetes mellitus with diabetic chronic kidney disease; I50.89 Other heart failure; N18.30 Chronic kidney disease, stage 3 unspecified; E11.40 Type 2 diabetes mellitus with diabetic neuropathy, unspecified; E78.5 Hyperlipidemia, unspecified; K21.9 Gastro-esophageal reflux disease without esophagitis; F32.A Depression, unspecified; F41.9 Anxiety disorder, unspecified; Z79.899 Other long term (current) drug therapy; Y83.8 Other surgical procedures as the cause of abnormal reaction of the patient, or of later complication, without mention of misadventure at the time of the procedure; Y92.89 Other specified places as the place of occurrence of the external cause
CPT/HCPCS: 97605; 87070; 87077 ×4; 87186 ×4; A6021; A4450

== ENCOUNTER → 2023-09-08 | Outpatient (CLI) | payer OTHER | END | disposition home or self-care (01) | LOC: WHH 10:15 | PROVIDERS: ATTEND Nurse Practitioner Family | DX: T81.89XD Other complications of procedures, not elsewhere classified, subsequent encounter (principal); E11.621 Type 2 diabetes mellitus with foot ulcer; L97.522 Non-pressure chronic ulcer of other part of left foot with fat layer exposed; L97.421 Non-pressure chronic ulcer of left heel and midfoot limited to breakdown of skin; E11.622 Type 2 diabetes mellitus with other skin ulcer; L98.412 Non-pressure chronic ulcer of buttock with fat layer exposed; E11.40 Type 2 diabetes mellitus with diabetic neuropathy, unspecified; E11.22 Type 2 diabetes mellitus with diabetic chronic kidney disease; I13.0 Hypertensive heart and chronic kidney disease with heart failure and stage 1 through stage 4 chronic kidney disease, or unspecified chronic kidney disease; I50.89 Other heart failure; N18.30 Chronic kidney disease, stage 3 unspecified; E78.5 Hyperlipidemia, unspecified; K21.9 Gastro-esophageal reflux disease without esophagitis; F32.A Depression, unspecified; F41.9 Anxiety disorder, unspecified; Z79.899 Other long term (current) drug therapy; Y83.8 Other surgical procedures as the cause of abnormal reaction of the patient, or of later complication, without mention of misadventure at the time of the procedure | CPT/HCPCS: 97605 ==